=== PATIENT | female | born 1985 | race Caucasian/White ===

== ENCOUNTER 2023-10-03 14:21 | Emergency (ER) | payer SELFPAY ==
[~2023-10-03] VITALS: Ht 152.4 cm; Wt 59.4 kg
[2023-10-03 14:33] VITALS: BP 94/43; PULSE 59; RESP 14; TEMP 97; O2SAT 100
[2023-10-03] MEDS: NACL 0.9% 1,000 ML IV ONE ×2 (15:24→16:43)
[2023-10-03 15:27] VITALS: O2SAT 100
[2023-10-03 15:35] LABS: BASOPHILS # (AUTO) 0.1 K/uL (0.00-0.22); BASOPHILS % (AUTO) 0.7 % (0.0-2.0); EOSINOPHILS % (AUTO) 0.1 % (0.0-4.0); HEMATOCRIT 42.2 % (36-48); HEMOGLOBIN 14.6 g/dL (12.0-16.0); LYMPHOCYTES # (AUTO) 1.6 K/uL (2.5-16.5); MEAN CORPUSCULAR HEMOGLOBIN 31 pg (27-31); MEAN CORPUSCULAR HGB CONC 35 g/dL (33-37); MONOCYTES % (AUTO) 5.9 % (1.7-9.3); NEUTROPHILS # (AUTO) 13.5 K/uL (1.8-7.7); NEUTROPHILS % (AUTO) 83.3 % (42.2-75.2); PLATELET COUNT (AUTO) 427 K/uL (140-450); RED BLOOD CELL COUNT(AUTO) 4.75 MIL/uL (4.20-5.40); RED CELL DISTRIBUTION WIDTH 13.4 % (11.6-13.7); WHITE BLOOD COUNT (AUTO) 16.2 K/uL (4.8-10.8)
[2023-10-03] MEDS: FAMOTIDINE 20 MG/2 ML VIAL IVP ONE (15:38)
[2023-10-03] MEDS: ONDANSETRON 4 MG/2 ML VIAL IVP ONE ×2 (15:38→16:45)
[2023-10-03 16:01] LABS: ALBUMIN 4.7 g/dL (3.4-5.0); CALCIUM 9.8 mg/dL (8.5-10.1); CARBON DIOXIDE 24.5 mmol/L (21-32); POTASSIUM 3.5 mmol/L (3.5-5.1); TOTAL BILIRUBIN 0.5 mg/dL (0.0-1.0); TOTAL PROTEIN, SERUM 10.3 g/dL (6.4-8.2)
[2023-10-03 16:11] LABS: BARBITURATE, URINE NEGATIVE ng/ml (NEG <=200)
[2023-10-03 16:12] LABS: AMPHETAMINE, URINE NEGATIVE ng/ml (NEG <=1000); BENZODIAZEPINE, URINE NEGATIVE ng/mL (NEG <=200); CANNABINOID, URINE NEGATIVE ng/mL (NEG <=50); COCAINE, URINE NEGATIVE ng/mL (NEG <=300); OPIATE, URINE NEGATIVE ng/mL (NEG <=2000); PHENCYCLIDINE SCREEN,URINE NEGATIVE ng/mL (NEG <=25)
[2023-10-03 17:00] VITALS: BP 117/86; PULSE 88; RESP 18; TEMP 97
[2023-10-03] MEDS ORDERED: ONDA-188 PO (17:09)
[2023-10-03] MEDS ORDERED: BEN10 PO (17:09)
[2023-10-03 17:23] VITALS: O2SAT 100
== END 2023-10-03 17:42 | disposition home or self-care (01) ==
LOC: EDBD 14:21 → MED 14:21
DX: R11.2 Nausea with vomiting, unspecified (principal); E86.0 Dehydration; Z79.899 Other long term (current) drug therapy
CPT/HCPCS: 36415; 80053; 80305; 81025; 82948; 83690; 85025; 96361; 96374; 96375; 96376; 99284; J2405; J3490; J7030